=== PATIENT | female | born 1980 | race Caucasian/White ===

== ENCOUNTER 2024-11-05 22:18 | Emergency (ER) | payer SELFPAY ==
[2024-11-05] VITALS (9 sets, daily range): BP systolic 135–177; BP diastolic 76–91; PULSE 90; TEMP 36.9; O2SAT 98–99; BMI 35.2
--- NOTE | 2024-11-05 22:32 | PC.NURSE ---
this patient ambulated to er room 9, with complaints of a left sided headache, onset today. this patient denies any recent fall, injury or trauma to cause this headache. also complains of sinus pressure onset 1 day ago. plus complains of left lower tooth pain from a broke tooth x months . this patient arrives with her sister in law
--- NOTE | 2024-11-05 22:44 | ED.GENADUL1 ---
HPI HPI - General Adult General Chief complaint: Headache Stated complaint: Headache Time Seen by Provider: 11/05/24 22:42 Source: patient Mode of arrival: walk-in Limitations: no limitations History of Present Illness HPI narrative: complains of dental abscess left lower molar that is draining. also has sinus pressure which she feels has triggered a migraine. Migraine headaches since age 8. No fever or chills. neck is not stiff Related Data Home Medications ?Medication ?Instructions ?Recorded ?Confirmed propranolol 160 mg capsule,24 mg PO 11/05/24 hr,extended release Allergies Allergy/AdvReac Type Severity Reaction Status Date / Time metoclopramide (From Reglan) Allergy Mild Unknown Verified 11/05/24 22:27 Opioid HPI Opioid Management Most Recent Opioid Data: Last Pain Scale 4 Today, 23:56 Last ED Pain Assessment Today, 23:56 Review of Systems ROS Status of ROS 10 or more systems reviewed and unremarkable except as noted in history and below PFSH PFSH Social History Little interest or pleasure in doing things: not at all Feeling down, depressed, or hopeless: not at all Exam Constitutional Vital Signs, click to edit/add: Last Vital Signs Temp 98.4 F 11/05/24 22:28 Pulse 90 11/05/24 22:28 Resp 18 11/05/24 22:28 BP 177/91 H 11/05/24 22:28 Pulse Ox 99 11/05/24 22:28 O2 Del Method Room Air 11/05/24 22:28 Common normals: no apparent distress, average body habitus, oriented x3, no limitations, healthy appearing, alert and well nourished [facility] Common normals: normocephalic and head/scalp atraumatic Other: left lower posterior molar dental abscess. pharynx is clear frontal and maxillary sinus tenderness Eye Common normals: PERRL and EOMs intact bilaterally Respiratory Common normals: normal respiratory effort, no retractions, no use of accessory muscles and clear to auscultation bilaterally Cardio Common normals: regular rate, regular rhythm, S1 normal heart sound and S2 normal heart sound Extremity Common normals: normal to inspection and full ROM Neuro Common normals: oriented x3, CN's II-XII intact bilaterally, moves all extremities and no focal motor deficits Psych Appearance: grossly normal Course Vital Signs Vital signs: Vital Signs Temperature 98.4 F 11/05/24 22:28 Pulse Rate 90 11/05/24 22:28 Respiratory Rate 18 11/05/24 22:28 Blood Pressure 177/91 H 11/05/24 22:28 Pulse Oximetry 99 11/05/24 22:28 Oxygen Delivery Method Room Air 11/05/24 22:28 Temperature 98.4 F 11/05/24 22:28 Pulse Rate 90 11/05/24 22:28 Respiratory Rate 18 11/05/24 22:28 Blood Pressure 177/91 H 11/05/24 22:28 Pulse Oximetry 99 11/05/24 22:28 Oxygen Delivery Method Room Air 11/05/24 22:28 Medical Decision Making MDM Narrative Medical decision making narrative: patient presents with obvious dental abscess that is draining. Also has sinus pain and pressure and a migraine. migraine same as past migraines. No fever. Treated with cocktail of magnesium, solumedrol for the migraine and pain decreased to 4/10 and was now tolerable. Given IV clindamycin for the abscess and discharged home with a prescription for clindamycin. She is to follow up with her doctor next week for recheck Lab Data Labs: Lab Results 11/05/24 Range/Units 22:58 WBC 10.6 (4.0-11.0) 10^3/uL RBC 4.72 (4.20-5.40) 10^6/uL Hgb 14.2 (12.0-16.0) g/dL Hct 42.0 (36.0-48.0) % MCV 89.0 (81.0-99.0) fL MCH 30.1 (26.7-34.0) pg MCHC 33.8 (29.9-35.2) g/dL RDW 13.2 (11.0-15.0) % Plt Count 302 (150-450) 10^3/uL MPV 10.8 (9.5-13.5) fL Neut % (Auto) 58.7 (43.0-75.0) % Lymph % (Auto) 28.9 (20.5-60.0) % Schuyler % (Auto) 8.8 (1.7-12.0) % Eos % (Auto) 2.6 (0.9-7.0) % Baso % (Auto) 0.9 (0.2-2.0) % Neut # (Auto) 6.2 (1.4-6.5) 10^3/uL Lymph # (Auto) 3.1 (1.2-3.8) 10^3/uL Schuyler # (Auto) 0.9 H (0.3-0.8) 10^3/uL Eos # (Auto) 0.3 (0.0-0.7) 10^3/uL Baso # (Auto) 0.1 (0.0-0.1) 10^3/uL Abs Immat Gran (auto) 0.01 (0.00-0.03) 10^3/uL Imm/Tot Granulo (auto) 0.1 (0.0-0.5) % Sodium 141 (136-145) mmol/L Potassium 4.1 (3.5-5.1) mmol/L Chloride 105 (98-107) mmol/L Carbon Dioxide 25.5 (21.0-32.0) mmol/L Anion Gap 14.6 BUN 13.0 (7.0-18.0) mg/dL Creatinine 0.83 (0.55-1.02) mg/dL Est GFR ( Amer) >60 (>=60 mL/min/1.73m^2) Est GFR (Non-Af Amer) >60 (>=60 mL/min/1.73m^2) BUN/Creatinine Ratio 15.7 Glucose 81 (74-106) mg/dL Calcium 8.7 (8.5-10.1) mg/dL Discharge Plan Discharge Chief Complaint: Headache Clinical Impression: Migraine, Abscess, dental Patient Disposition: Home, Self-Care Prescriptions / Home Meds: No Action propranolol 160 mg capsule,extended release 24 hr PO Print Language: German Instructions: Dental Abscess (ED), Migraine Headache (ED) Additional Instructions: follow up with your doctor next week for recheck Referrals: Sravanthi Everett NP [Primary Care Provider] - 1 week
[2024-11-05 23:10] LABS: Hematocrit 42.0 % (36.0-48.0); Hemoglobin 14.2 g/dL (12.0-16.0); Immature Granulocytes Abs Auto 0.01 10^3/uL (0.00-0.03); Immature Granulocytes Pct Auto 0.1 % (0.0-0.5); Lymphocytes Absolute Auto 3.1 10^3/uL (1.2-3.8); Mean Corpuscular HGB Conc 33.8 g/dL (29.9-35.2); Mean Corpuscular Hemoglobin 30.1 pg (26.7-34.0); Mean Corpuscular Volume 89.0 fL (81.0-99.0); Platelet Count 302 10^3/uL (150-450); Red Blood Count 4.72 10^6/uL (4.20-5.40); White Blood Count 10.6 10^3/uL (4.0-11.0)
[2024-11-05] MEDS: METHYLPREDNISOLONE SOD SUCC PF 125 MG/2 ML VIAL IVP (23:16)
[2024-11-05] MEDS: MAGNESIUM SULFATE IN WATER 2 GM/50 ML PREMIX IV (23:19)
[2024-11-05 23:21] LABS: Anion Gap 14.6; Blood Urea Nitrogen 13.0 mg/dL (7.0-18.0); Calcium 8.7 mg/dL (8.5-10.1); Carbon Dioxide 25.5 mmol/L (21.0-32.0); Chloride 105 mmol/L (98-107); Estimated GFR (African America >60 (>=60 mL/min/1.73m^2); Estimated GFR (Non-African Ame >60 (>=60 mL/min/1.73m^2); Glucose 81 mg/dL (74-106); Potassium 4.1 mmol/L (3.5-5.1); Sodium 141 mmol/L (136-145)
[2024-11-05] MEDS: CLINDAMYCIN PHOSPHATE/D5W 900 MG/50 ML PREMIX 100 MG IV (23:23)
[2024-11-06] VITALS: BP 144/83; O2SAT 99
[2024-11-06 00:10] VITALS: O2SAT 98
[2024-11-06] MEDS: CLINDAMYCIN HCL 150 MG CAPSULE 300 MG PO (00:27)
[2024-11-06 00:28] VITALS: BP 164/92; PULSE 60; TEMP 36.9; O2SAT 98
--- NOTE | 2024-11-06 00:35 | PC.NURSE ---
i gave this patient verbal and written discharge orders along with 1 Rx and take home medication and this patient voices yes to understanding these. at time of discharge this patient voices no concerns or needs and shows no signs of distress
== END 2024-11-06 00:37 | disposition home or self-care (01) ==
PROVIDERS: Emergency Provider Internal Medicine; PCP Nurse Practitioner Family
DX: G43.909 Migraine, unspecified, not intractable, without status migrainosus (principal); K04.7 Periapical abscess without sinus
CPT/HCPCS: 36415; 80048; 85025; 96365; 96368; 96375; 99284; J0736; J2919; J3475

== ENCOUNTER 2024-12-28 21:02 | Emergency (ER) | payer SELFPAY ==
--- OUTSIDE RECORDS SUMMARY | 2020-03-27 13:15 | XMS_ITS | Continuity of Care Document ---
Author Organization [facility] Address [address] [place] [address] Phone Care Team Providers Care Hemodialysis Patient Care Specialist Name Role Phone Henok Layton Unavailable Unavailable Procedures Procedure Date Moderna COVID Vaccine Admin Dose 2 Moderna COVID-19 Vaccine Moderna COVID Vaccine Admin Dose 1 Moderna COVID-19 Vaccine Advance Directives Directive Yes / No Effective Date File Name No Information Encounters Encounter Description Practice Location Reason(s) For Visit Diagnoses Date Provider Providers Copied on Encounter [facility], [address], [place], [id number], tel:[phone] COVID [facility] No Information Brayan Titus. [address], [place], [id number], . tel:[phone] [facility], [address], [place], [id number], tel:[phone] COVID [facility] No Information Brayan Titus. [address], [place], [id number], [place]. tel:[phone] Family History Family Member Type Diagnosis Age At Onset No Information Immunizations Vaccine Date Status Comments Moderna COVID administered Source: New Im munization Record Moderna COVID administered Source: New Im munization Record Payers Payer name Insurance type Covered democrat ID Authoriza tion(s) [employer] [id number] [employer] [id number] [employer] [id number] Social History Type Description Quantity Date Captured Comments Alcohol Use Details Unknown Caffeine Use Details Unknown Tobacco Use Status No Information Smoking Status No Information Sex Female Sexual Orientation Straight or heterosexual Gender Identity Female Chief Complaint And Reason For Visit No Information Reason For Referral Reason For Referral No Information History Of Present Illness Encounter Date Complaint History Of Prese nt Illness No Information Functional Status Date Functional Assessmen t No Information Instructions Date Instruction Additional Infor mation No Information Assessments Type Assessment Date No Information Patient Care Teams Name Effective Dates (start - stop) Status Members No Information
[2024-12-28 21:05] VITALS: BP 176/111; PULSE 63; TEMP 36.7; O2SAT 99; BMI 35.2
[2024-12-28 21:20] VITALS: O2SAT 99
--- NOTE | 2024-12-28 21:21 | ED_ITS ---
HPI HPI - General Adult General Chief complaint: Upper Respiratory Infection Stated complaint: SINUS , EAR, HEAD HURT BAD Time Seen by Provider: 12/28/24 21:14 Source: patient Mode of arrival: walk-in Limitations: no limitations History of Present Illness HPI narrative: 44 year old female presents to the ED for left-sided sinus pain/pressure/congestion and left ear pain. Onset was 3 days ago. Denies fever, chills, cough, sore throat, rhinorrhea. Denies vision changes, dizziness, dental pain. She took her BP medication today. Reports taking Tylenol cold and sinus without relief. Related Data Home Medications ?Medication ?Instructions ?Recorded ?Confirmed propranolol 160 mg capsule,24 160 mg PO Q24H 11/05/24 12/28/24 hr,extended release Previous Rx's ?Medication ?Instructions ?Recorded [id number]-inccbujybqpbk-aicdiycr 1 cap PO Q8H PRN arden n 3 days #9 12/28/24 50 mg-300 mg-40 mg capsule caps (Fioricet) cetirizine 10 mg tablet (Zyrtec) 10 mg PO DAILY #14 ta bs 12/28/24 prednisone 20 mg tablet 40 mg (2 x 20 mg) PO DAILY 5 days 12/28/24 #10 tabs sodium chloride 0.65 % nasal spray 1 spray intranasal Q3H PRN nasal 12/28/24 aerosol (Saline Mist) congestion #45 mL Allergies Allergy/AdvReac Type Severity Reaction Status Date / Time venom-wasp Allergy Severe Redness of Verified 12/28/24 21:12 Skin metoclopramide (From Reglan) Allergy Mild Unknown Verified 12/28/24 21:12 Opioid HPI Opioid Management Most Recent Opioid Data: Last Pain Scale 7 Today, 21:18 Review of Systems ROS Constitutional Denies: fever or chills Eyes Denies: change in vision Ears, nose, mouth, and throat Reports: ear pain and nasal congestion; Denies: throat pain, neck pain, mouth pain, ear discharge or nasal discharge Cardiovascular Denies: chest pain Respiratory Denies: shortness of breath or cough Musculoskeletal Denies: neck pain Neurological Denies: headache, numbness in extremities or dizziness PFSH PFSH Social History Little interest or pleasure in doing things: not at all Feeling down, depressed, or hopeless: not at all Exam Constitutional Vital Signs, click to edit/add: Last Vital Signs Temp 98.1 F 12/28/24 21:05 Pulse 63 12/28/24 21:05 Resp 16 12/28/24 21:05 BP 176/111 H 12/28/24 21:05 Pulse Ox 99 12/28/24 21:20 O2 Del Method Room Air 12/28/24 21:20 HENNJ Common normals: external ears normal, EACs normal, TMs normal bilaterally, moist oral mucous membranes and oropharynx normal Face and sinus: sinus tenderness frontal (left-sided) and maxillary (left-sided) Nose: external nose normal Mouth: oral and palatal mucosa normal, lip normal and tongue normal Teeth and gingiva: other (No dental abscess) Throat: posterior oropharynx normal and uvula midline Eye Common normals: PERRL, EOMs intact bilaterally, conjunctivae normal and no scleral icterus Neck & C-Spine Common normals: supple Chest Chest: symmetrical chest wall rise Respiratory Common normals: normal respiratory effort and clear to auscultation bilaterally Effort & inspection: able to speak in complete sentences and symmetric chest movement Cardio Common normals: regular rate and regular rhythm Neuro Common normals: oriented x3, CN's II-XII intact bilaterally, moves all extremities and no focal motor deficits Sensorium/orientation: awake and alert Speech: speech normal Course Vital Signs Vital signs: Vital Signs Temperature 98.1 F 12/28/24 21:05 Pulse Rate 63 12/28/24 21:05 Respiratory Rate 16 12/28/24 21:05 Blood Pressure 176/111 H 12/28/24 21:05 Pulse Oximetry 99 12/28/24 21:05 Oxygen Delivery Method Room Air 12/28/24 21:05 Temperature 98.1 F 12/28/24 21:05 Pulse Rate 63 12/28/24 21:05 Respiratory Rate 16 12/28/24 21:05 Blood Pressure 176/111 H 12/28/24 21:05 Pulse Oximetry 99 12/28/24 21:20 Oxygen Delivery Method Room Air 12/28/24 21:20 Medical Decision Making MDM Narrative Medical decision making narrative: Pt was given Zyrtec, Decadron, and Percocet here in the ED. She is aware her BP was elevated today; she takes propranolol at home. Prescriptions were provided for Fioricet, Zyrtec, prednisone, and saline nasal spray. Follow up with pcp for a recheck, further evaluation and treatment. OARRS was reviewed. Medical Records Medical records reviewed: Yes I reviewed the patient's medical records Discharge Plan Discharge Chief Complaint: Upper Respiratory Infection Clinical Impression: Upper respiratory infection, viral Patient Disposition: Home, Self-Care Time of Disposition Decision: 21:51 Condition: Good Mode of Transportation: Private Vehicle Prescriptions / Home Meds: New prednisone 20 mg tablet 40 mg PO DAILY 5 Days Qty: 10 0RF cetirizine [Zyrtec] 10 mg tablet 10 mg PO DAILY Qty: 14 0RF Saline Mist 0.65 % aerosol,spray 1 spray intranasal Q3H PRN (Reason: nasal congestion) Qty: 45 0RF cgebsfndmf-[id number] [Fioricet] 50-300-40 mg capsule 1 cap PO Q8H PRN (Reason: pain) 3 Days Qty: 9 0RF No Action propranolol 160 mg capsule,extended release 24 hr 160 mg PO Q24H Print Language: Nigerian Instructions: Sinusitis (ED), Upper Respiratory Infection (ED) Additional Instructions: Return to the ED for worsening symptoms. Referrals: Sravanthi Everett NP [Primary Care Provider] - 1 week
[2024-12-28] MEDS: DEXAMETHASONE SOD PHOS 10 MG/ML VIAL PO (21:33)
[2024-12-28] MEDS: CETIRIZINE HCL 10 MG TABLET PO (21:33)
[2024-12-28] MEDS: OXYCODONE HCL/ACETAMINOPHEN 5MG/325MG 1 TAB PO (21:33)
[2024-12-28 22:18] VITALS: BP 168/98
== END 2024-12-28 22:30 | disposition home or self-care (01) ==
PROVIDERS: Emergency Provider Emergency Medicine; PCP Nurse Practitioner Family
DX: J06.9 Acute upper respiratory infection, unspecified (principal); R51.9 Headache, unspecified; H92.02 Otalgia, left ear
CPT/HCPCS: 99284; J1100